=== PATIENT | male | born 1960 | race Caucasian/White ===

== ENCOUNTER 2025-04-19 10:36 | Observation (INO) ==
[2025-04-19] MEDS ORDERED: NS 1,000 ML IV 1,000 ML ONE (10:46)
[2025-04-19] MEDS: NS 1,000 ML IV 1,000 ML IV ONE (10:50)
--- NOTE | 2025-04-19 10:50 | DR.GENAD ---
HPI Time Seen Time Seen by Provider: 04/19/25 10:48 Complaint/Symptoms Chief Complaint Doctors Comments: This patient was found out in the ER by his relatives. He does have a history of alcoholism. They stated do not know when the last time he drank but he said he did not have anything to drink this morning. Has taken some medication for pain and depression prescribed by his primary care provider Dr. Ulrich. Patient was able to answer questions appropriately for his he knew we were [facility] what hospital he was he was. ROS Review of Systems Constitutional: Malaise, Weakness, Irritable and Other Eyes: No Symptoms Reported ENTM: No Symptoms Reported Respiratoy: No Symptoms Reported Cardiovascular: No Symptoms Reported Gastrointestinal/Abdominal: No Symptoms Reported Genitourinary: No Symptoms Reported Neurological: Anxiety and Weakness Musculoskeletal: Muscle Pain Integumentary: No Symptoms Reported Hematologic/Lymphatic: No Symptoms Reported Endocrine: No Symptoms Reported Psychiatric: Anxiety PE Vital Signs Vitals: Vital Signs Temperature 97.7 F Pulse Rate 81 Pulse Rate 78 Pulse Rate 85 Pulse Rate 84 Pulse Rate 83 Pulse Rate 86 Pulse Rate 87 Pulse Rate 86 Pulse Rate 93 Respiratory Rate 25 Respiratory Rate 25 Respiratory Rate 33 Respiratory Rate 29 Respiratory Rate 25 Respiratory Rate 26 Respiratory Rate 21 Blood Pressure 122/73 Blood Pressure 115/64 Blood Pressure 129/97 Blood Pressure 129/97 Blood Pressure 99/82 O2 Sat by Pulse Oximetry 96 O2 Sat by Pulse Oximetry 99 O2 Sat by Pulse Oximetry 98 O2 Sat by Pulse Oximetry 95 O2 Sat by Pulse Oximetry 97 O2 Sat by Pulse Oximetry 98 O2 Sat by Pulse Oximetry 100 General Limitations: Physical Limitation (due to weakness and muscle pain) Head Head Exam: Normal Inspection, Atraumatic and Normocephalic Eyes Eye exam: Normal Appearance ENT ENT Exam: Normal Exam External Ear Exam: Normal External Inspection TM/Canal Exam: Bilateral: Normal Nose Exam: Normal Nose Exam Mouth Exam: Normal Inspection Throat Exam: Normal Inspection Neck Neck Exam: Normal Inspection Chest Chest Inspection: Normal Inspection Respiratory Respiratory Exam: Other (rhonchi) Respiratory Exam: Bilateral: Rhonchi Abdominal Exam Abdominal Exam: Normal Inspection Extremities Extremities Exam: Normal Inspection Back Back Exam: Normal Inspection Neurologic Neurological Exam: Alert and Other (Agitated) Psychiatric Psychiatric Exam: Agitated Skin Skin Exam: Warm, Dry and Intact MDM Differential Diagnosis Differential Diagnosis: Rhabdomyolysis,Etoh abuse,acute renal failure COURSE Treatment Treatment: Patient may well stable during ER evaluation. We did do evaluation of this patient for rhabdo and he did have a CK of 6421. His BUN was 43 creatinine was 2.97 his GFR was 22 3 this patient did have alcohol level of less than 3 troponin was 19.7 EKG showed normal sinus rhythm chest x-ray was negative for infiltrate. We did do a CT scan of his brain that was negative for acute intracranial abnormality. The patient was started on half-normal saline bolus and with the amp of bicarb and there and the patient was also given Valium 5 mg IV. Spoke to Dr. Ulrich his primary care provider at 1215 he stated the changes to the IV fluids to lactated Ringer's to be ran at 200 cc an hour and continue with all the other medications I will let him prescribe what he wants to give the patient for his maybe impending withdrawal from alcohol use. Patient and patient family was told of the intent to admission and they were agreeable to the admission [facility]OR Labs Reviewed Laboratory Results Reviewed?: Yes 04/19/25 10:50 04/19/25 10:50 Laboratory: WBC 9.1 X10^3/uL (3.6-10.0) 04/19/25 10:50 RBC 3.65 X10^6/uL (4.7-6.0) L 04/19/25 10:50 Hgb 13.4 g/dL (13.5-18.0) L 04/19/25 10:50 Hct 38.8 % (42.0-54.0) L 04/19/25 10:50 MCV 106.4 fL (80.0-100.0) H 04/19/25 10:50 MCH 36.8 pg (27.0-34.0) H 04/19/25 10:50 MCHC 34.6 g/dL (33.0-35.0) 04/19/25 10:50 RDW 14.8 % (11.6-16.5) 04/19/25 10:50 Plt Count 100 X10^3/uL (150.0-450.0) L 04/19/25 10:50 Plt Count Comment Decreased (ADEQUATE) 04/19/25 10:50 MPV 9.5 fL (7.4-11.0) 04/19/25 10:50 Neut % (Auto) 83.9 % (42.0-75.0) H 04/19/25 10:50 Lymph % (Auto) 8.9 % (21.0-51.0) L 04/19/25 10:50 [place] % (Auto) 6.0 % (0.0-13.0) 04/19/25 10:50 Eos % (Auto) 0.4 % (0.9-2.9) L 04/19/25 10:50 Baso % (Auto) 0.8 % (0.2-1.0) 04/19/25 10:50 Neut # (Auto) 7.7 x10^3/uL (2.2-4.8) H 04/19/25 10:50 Lymph # (Auto) 0.8 X10^3/uL (1.3-2.9) L 04/19/25 10:50 [place] # (Auto) 0.6 x10^3/uL (0.3-0.8) 04/19/25 10:50 Eos # (Auto) 0.0 x10^3/uL (0.0-0.2) 04/19/25 10:50 Baso # (Auto) 0.1 X10^3/uL (0.0-0.1) 04/19/25 10:50 Absolute Nucleated RBC 0.3 /100WBC 04/19/25 10:50 Total Counted 100 04/19/25 10:50 Neutrophils % (Manual) 89 % (39-76) H 04/19/25 10:50 Lymphocytes % (Manual) 6 % (13-43) L 04/19/25 10:50 Monocytes % (Manual) 5 % (4-9) 04/19/25 10:50 Plt Morphology Comment Normal (NORMAL) 04/19/25 10:50 RBC Morphology Abnormal (NORMAL) 04/19/25 10:50 Macrocytosis 1+ A 04/19/25 10:50 Stomatocytes Present 04/19/25 10:50 Sample Site Left radial 04/19/25 12:25 ABG pH 7.400 (7.35-7.45) 04/19/25 12:25 ABG pCO2 38.0 mmHg (35.0-45.0) 04/19/25 12:25 ABG pO2 67.0 mmHg (80.0-100.0) L 04/19/25 12:25 ABG HCO3 23.5 mmol/L (22-26) 04/19/25 12:25 ABG O2 Saturation 93.0 % (90-100) 04/19/25 12:25 ABG Base Excess -1.1 mmol/L (-2.0-2.0) 04/19/25 12:25 Ross Test Positive 04/19/25 12:25 A-a Gradient 35.0 mmHg 04/19/25 12:25 FiO2 21.0 04/19/25 12:25 Blood Gas Comments Toll well au 04/19/25 12:25 Sodium 136 mmol/L (136-145) 04/19/25 10:50 Corrected Sodium TNP 04/19/25 10:50 Potassium 5.1 mmol/L (3.5-5.1) 04/19/25 10:50 Chloride 98 mmol/L (98-107) 04/19/25 10:50 Carbon Dioxide 24.6 mmol/L (21-32) 04/19/25 10:50 BUN 43 mg/dL (7-18) H 04/19/25 10:50 Creatinine 2.97 mg/dL (0.70-1.30) H 04/19/25 10:50 Est GFR (MDRD) Af Amer 28 (>60) L 04/19/25 10:50 Est GFR (MDRD) Non-Af 23 (>60) L 04/19/25 10:50 Glucose 93 mg/dL (65-99) 04/19/25 10:50 Calcium 9.9 mg/dL (8.5-10.1) 04/19/25 10:50 Corrected Calcium TNP 04/19/25 10:50 Total Bilirubin 0.70 mg/dL (0.2-1.0) 04/19/25 10:50 AST 160 Units/L (15-37) H 04/19/25 10:50 ALT 85 Units/L (12-78) H 04/19/25 10:50 Alkaline Phosphatase 73 Units/L (46-116) 04/19/25 10:50 Creatine Kinase 6421 Units/L (39-308) H 04/19/25 10:50 Troponin I High Sens 19.7 ng/L (4.0-60.0) 04/19/25 10:50 Total Protein 10.3 g/dL (6.4-8.2) H 04/19/25 10:50 Albumin 4.7 g/dL (3.4-5.0) 04/19/25 10:50 Globulin 5.6 g/dL (2.5-4.5) H 04/19/25 10:50 Albumin/Globulin Ratio 0.8 Ratio (1.1-2.1) L 04/19/25 10:50 Specimen Type Catherized urine 04/19/25 11:54 Urine Color Dark yellow (YELLOW) 04/19/25 11:54 Urine Appearance Clear (CLEAR) 04/19/25 11:54 Urine pH 5.0 (5.0 - 8.0) 04/19/25 11:54 Ur Specific [place] 1.020 (1.000-1.030) 04/19/25 11:54 Urine Protein 2+ (NEGATIVE) 04/19/25 11:54 Urine Glucose (UA) Negative (NEGATIVE) 04/19/25 11:54 Urine Ketones Negative (NEGATIVE) 04/19/25 11:54 Urine Blood 5+ (NEGATIVE) 04/19/25 11:54 Urine Nitrite Negative (NEGATIVE) 04/19/25 11:54 Urine Bilirubin Negative (NEGATIVE) 04/19/25 11:54 Urine Urobilinogen Normal (NORMAL) 04/19/25 11:54 Ur Leukocyte Esterase 1+ (NEGATIVE) 04/19/25 11:54 Urine RBC 5-10 /HPF (0-3) A 04/19/25 11:54 Urine WBC 0-2 /HPF (0-5) 04/19/25 11:54 Ur Squamous Epith Cells Rare /HPF (NEGATIVE) 04/19/25 11:54 Amorphous Sediment Trace /HPF (NEGATIVE) 04/19/25 11:54 Urine Bacteria Trace /HPF (NEGATIVE) 04/19/25 11:54 Ur Culture Indicated? No/not indicated 04/19/25 11:54 Ethyl Alcohol mg/dL < 3 mg/dL (0-19.9) 04/19/25 10:50 Opioid Opioid Risk Tool Total: 0 Total Score Risk Category: Low Risk Copyright: Brayan HENDRIX predicting aberrant behaviors Discharge Plan Diagnosis Discharge Problem: Rhabdomyolysis, Acute renal failure, Alcohol abuse Discharge Plan Patient Disposition: 09 ADMITTED INPATIENT Condition: Stable Prescriptions: No Action oxycodone-acetaminophen 10-325 mg tablet 1 tab PO TID PRN tamsulosin 0.4 mg capsule 0.4 mg PO DAILY lisinopril 10 mg tablet 10 mg PO QDAY escitalopram oxalate 20 mg tablet 20 mg PO QDAY bupropion HCl 150 mg tablet extended release 24 hr 150 mg PO QDAY pregabalin 150 mg capsule 150 mg PO DAILY Health Concerns: Post Hospitalization: new medications and changes needed to prevent readmission or further decline. Pt educated and given instructions on all concerns. Plan of Treatment: Continue with present treatment and follow up plan. Pt is to keep follow up appointment as instructed and take medications as ordered. Orders to Discharge Patient Discharge Orders: Transfer (Routine); Ordered 04/19/25 Ordered By: Ryan Bingham Follow ups/Referrals Follow ups/Referrals: KAREN ULRICH [Primary Care Provider, MEDICAL] - 3 days Instructions Stand Alone Forms: Find Help Web Site, Post Hospital Follow Up Care Print Language: SENEGALESE
--- NOTE | 2025-04-19 10:59 | EKG ---
Test Reason : Altered Mental Status Blood Pressure : */* mmHG Vent. Rate : 83 BPM Atrial Rate : 83 BPM P-R Int : 172 ms QRS Dur : 76 ms QT Int : 370 ms P-R-T Axes : -6 40 72 degrees QTc Int : 434 ms Normal sinus rhythm Normal ECG No previous ECGs available Confirmed by Timoteo Zarco MD ([id number]) on 04/19/2025 5:10:39 PM Referred By: Confirmed By: Timoteo Zarco MD
[2025-04-19 11:04] LABS: BASOPHILS # (AUTO) 0.1 X10^3/uL (0.0-0.1); BASOPHILS % (AUTO) 0.8 % (0.2-1.0); EOSINOPHILS % (AUTO) 0.4 % (0.9-2.9); HEMATOCRIT 38.8 % (42.0-54.0); HEMOGLOBIN 13.4 g/dL (13.5-18.0); LYMPHOCYTES # (AUTO) 0.8 X10^3/uL (1.3-2.9); LYMPHOCYTES % (AUTO) 8.9 % (21.0-51.0); MEAN CORPUSCULAR HEMOGLOBIN 36.8 pg (27.0-34.0); MEAN CORPUSCULAR HGB CONC 34.6 g/dL (33.0-35.0); MEAN CORPUSCULAR VOLUME 106.4 fL (80.0-100.0); MEAN PLATELET VOLUME 9.5 fL (7.4-11.0); MONOCYTES # (AUTO) 0.6 x10^3/uL (0.3-0.8); NEUTROPHILS # (AUTO) 7.7 x10^3/uL (2.2-4.8); NEUTROPHILS % (AUTO) 83.9 % (42.0-75.0); PLATELET COUNT 100 X10^3/uL (150.0-450.0); RED BLOOD COUNT 3.65 X10^6/uL (4.7-6.0); RED CELL DISTRIBUTION WIDTH 14.8 % (11.6-16.5); WHITE BLOOD COUNT 9.1 X10^3/uL (3.6-10.0)
[2025-04-19 11:20] LABS: ALANINE AMINOTRANSFERASE 85 Units/L (12-78); ALBUMIN 4.7 g/dL (3.4-5.0); ALKALINE PHOSPHATASE 73 Units/L (46-116); ASPARTATE AMINO TRANSFERASE 160 Units/L (15-37); BLOOD UREA NITROGEN 43 mg/dL (7-18); CALCIUM 9.9 mg/dL (8.5-10.1); CARBON DIOXIDE 24.6 mmol/L (21-32); CHLORIDE 98 mmol/L (98-107); CREATININE 2.97 mg/dL (0.70-1.30); GLUCOSE 93 mg/dL (65-99); POTASSIUM 5.1 mmol/L (3.5-5.1); SODIUM 136 mmol/L (136-145); TOTAL PROTEIN 10.3 g/dL (6.4-8.2); eGFR NON BLACK RACES 23 (>60)
[2025-04-19 11:21] LABS: BLOOD ALCOHOL < 3 mg/dL (0-19.9); CREATINE KINASE 6421 Units/L (39-308)
[2025-04-19 11:24] LABS: PLATELET MORPHOLOGY COMMENT NORMAL (NORMAL)
[2025-04-19 11:25] LABS: STOMATOCYTES PRESENT
--- NOTE | 2025-04-19 11:30 | CT ---
EXAM: BRAIN W/O CON HISTORY: [facility] called to home d/t patient laying in the yard "for hours". Pt is daily vodka drinker but pt denies he has drank anything this morning.; COMPARISON: No relevant prior studies were available for comparison at the time of interpretation.. TECHNIQUE: CT images were obtained. Multiplanar reconstructions were created on a separate workstation and used during interpretation. All CT scans at this facility is dose modulation, iterative reconstruction, and/or weight-based dosing as appropriate to reduce radiation to levels as low as reasonably achievable (ALARA). Postprocessing details, radiation dose, and contrast dose (if applicable) are recorded in the patient's medical record. FINDINGS: Head: Acute findings: There is no intracranial hemorrhage. No mass effect. No intra- axial or extra-axial fluid collection. There is no mass. No tentorial, uncal, or tonsillar herniation. Brain volume and white matter: There is diffuse cortical atrophy. There is hypoattenuation in the supratentorial white matter consistent with chronic microvascular ischemic disease. Ventricles: No hydrocephalus Midline structures: Pituitary gland and corpus callosum are normal. Posterior fossa and skull base: Cerebellum and posterior fossa are within normal limits. Basal cisterns are not effaced. Sinuses and mastoids: Right maxillary sinus is opacified Globes and Orbits: Globes are intact. Bony orbits are intact. Orbital contents are unremarkable. Skull and soft tissues: No depressed skull fracture. Calvarium appears intact. No scalp injury is identified. IMPRESSION: 1. No acute intracranial abnormality THIS IS AN ELECTRONICALLY VERIFIED FINAL REPORT 04/19/2025 11:27 AM - Electronically signed by Dann Ruffin MD
[2025-04-19] MEDS ORDERED: SODIUM BICARBONATE 8.4% INJ ADULT ONE (11:47)
[2025-04-19] MEDS ORDERED: NS 1/2 1,000 ML IV 1,000 ML IV ONE (11:47)
[2025-04-19] MEDS: SODIUM BICARBONATE 8.4% INJ ADULT 100 ML in NS 1/2 1,000 ML IV 1,000 ML IV ONE ×2 (11:59→12:09)
[2025-04-19] MEDS ORDERED: ATIVAN INJ 2 MG VIAL IVP ONE (12:04)
[2025-04-19] MEDS ORDERED: VALIUM INJ ONE (12:07)
[2025-04-19] MEDS: VALIUM INJ IM ONE (12:09)
[2025-04-19] MEDS: VALIUM INJ IVP ONE (12:09)
[2025-04-19 12:16] LABS: BILIRUBIN,URINE NEGATIVE (NEGATIVE); BLOOD/HEMOGLOBIN,URINE 5+ (NEGATIVE); GLUCOSE, URINE NEGATIVE (NEGATIVE); KETONES,URINE NEGATIVE (NEGATIVE); LEUKOCYTE ESTERASE ,URINE 1+ (NEGATIVE); NITRITES,URINE NEGATIVE (NEGATIVE); PROTEIN,URINE 2+ (NEGATIVE); UROBILINOGEN,URINE NORMAL (NORMAL)
[2025-04-19 12:28] LABS: ABG BASE EXCESS -1.1 mmol/L (-2.0-2.0); ABG HCO3 23.5 mmol/L (22-26)
[2025-04-19 12:29] LABS: ABG ALLEN TEST POSITIVE
[2025-04-19 12:31] LABS: APPEARANCE,URINE CLEAR (CLEAR); BACTERIA,URINE TRACE /HPF (NEGATIVE); COLOR,URINE DARK YELLOW (YELLOW); SQUAMOUS EPITHELIAL CELL,UR RARE /HPF (NEGATIVE)
[2025-04-19] MEDS ORDERED: VALIUM INJ IVP PRN (12:39)
[2025-04-19] MEDS: LR 1,000 ML IV 1,000 ML IV SCH (13:34)
[2025-04-19 13:50] VITALS: BMI 17.6
[2025-04-19 13:59] LABS: BLOOD UREA NITROGEN 42 mg/dL (7-18); CALCIUM 9.6 mg/dL (8.5-10.1); CHLORIDE 101 mmol/L (98-107); CREATININE 2.56 mg/dL (0.70-1.30); GLUCOSE 82 mg/dL (65-99); POTASSIUM 4.6 mmol/L (3.5-5.1); SODIUM 137 mmol/L (136-145); eGFR NON BLACK RACES 27 (>60)
[2025-04-19 14:17] LABS: CREATINE KINASE 7357 Units/L (39-308)
--- NOTE | 2025-04-19 16:35 | RAD ---
EXAM: CHEST, 1 VIEW HISTORY: EMS called to home d/t patient laying in the yard "for hours". Pt is daily vodka drinker but pt denies he has drank anything this morning.; COMPARISON: 02/20/2021 TECHNIQUE: AP portable FINDINGS: Unremarkable cardiac silhouette. No focal consolidation, pleural effusion, or pneumothorax. IMPRESSION: No acute cardiopulmonary findings. THIS IS AN ELECTRONICALLY VERIFIED FINAL REPORT 04/19/2025 4:32 PM - Electronically signed by Rajat Spears MD
[2025-04-19 22:56] LABS: CALCIUM 8.7 mg/dL (8.5-10.1); CARBON DIOXIDE 26.4 mmol/L (21-32); CREATININE 1.77 mg/dL (0.70-1.30); POTASSIUM 3.9 mmol/L (3.5-5.1)
[2025-04-20 06:13] LABS: BASOPHILS % (AUTO) 0.4 % (0.2-1.0); EOSINOPHILS # (AUTO) 0.1 x10^3/uL (0.0-0.2); EOSINOPHILS % (AUTO) 1.5 % (0.9-2.9); HEMATOCRIT 31.6 % (42.0-54.0); HEMOGLOBIN 10.8 g/dL (13.5-18.0); LYMPHOCYTES # (AUTO) 1.1 X10^3/uL (1.3-2.9); LYMPHOCYTES % (AUTO) 18.2 % (21.0-51.0); MEAN CORPUSCULAR HEMOGLOBIN 36.5 pg (27.0-34.0); MEAN CORPUSCULAR VOLUME 107.3 fL (80.0-100.0); MEAN PLATELET VOLUME 9.2 fL (7.4-11.0); MONOCYTES # (AUTO) 0.5 x10^3/uL (0.3-0.8); NEUTROPHILS # (AUTO) 4.4 x10^3/uL (2.2-4.8); NEUTROPHILS % (AUTO) 71.9 % (42.0-75.0); PLATELET COUNT 81 X10^3/uL (150.0-450.0); RED BLOOD COUNT 2.95 X10^6/uL (4.7-6.0); RED CELL DISTRIBUTION WIDTH 14.7 % (11.6-16.5); WHITE BLOOD COUNT 6.1 X10^3/uL (3.6-10.0)
[2025-04-20 06:34] LABS: ALANINE AMINOTRANSFERASE 55 Units/L (12-78); ALBUMIN 2.8 g/dL (3.4-5.0); ALKALINE PHOSPHATASE 54 Units/L (46-116); ASPARTATE AMINO TRANSFERASE 114 Units/L (15-37); BLOOD UREA NITROGEN 30 mg/dL (7-18); CALCIUM 8.8 mg/dL (8.5-10.1); CARBON DIOXIDE 27.5 mmol/L (21-32); CHLORIDE 106 mmol/L (98-107); COR CA(FOR HYPOALB) 9.8 mg/dL (8.5-10.1); COR NA(FOR HYPERGLY) 140 mmol/L (136-145); CREATININE 1.26 mg/dL (0.70-1.30); GLUCOSE 116 mg/dL (65-99); POTASSIUM 4.2 mmol/L (3.5-5.1); SODIUM 140 mmol/L (136-145); TOTAL PROTEIN 6.7 g/dL (6.4-8.2); eGFR NON BLACK RACES > 60 (>60)
[2025-04-20 06:51] LABS: PLATELET MORPHOLOGY COMMENT NORMAL (NORMAL)
[2025-04-20] MEDS ORDERED: MILK OF MAGNESIA PO PRN (07:31)
[2025-04-20] MEDS ORDERED: LIBRIUM PO PRN (07:31)
[2025-04-20] MEDS ORDERED: KAOPECTATE (NEW FORMULA) PO PRN (07:31)
[2025-04-20] MEDS ORDERED: MAALOX or MYLANTA PO PRN (07:31)
[2025-04-20] MEDS ORDERED: LEXAPRO ONE (08:04)
[2025-04-20 08:08] LABS: TSH (3RD GENERATION) 0.723 uIU/mL (0.358-3.74)
[2025-04-20] MEDS: FLOMAX PO SCH (08:35)
[2025-04-20] MEDS: ZESTRIL TAB 10 MG PO SCH (08:35)
[2025-04-20] MEDS: LEXAPRO PO SCH (08:36)
[2025-04-20] MEDS: THIAMINE HCL INJ IVP SCH (08:36)
[2025-04-20] MEDS: MAGNESIUM SULFATE 1 GRAM/100 mL PREMIX 1 G/100 ML BAG IV SCH (08:47)
[2025-04-20] MEDS: AMBIEN PO SCH (20:45)
[2025-04-21 05:24] VITALS: RESP 18; O2SAT 97
[2025-04-21 06:19] LABS: BASOPHILS % (AUTO) 0.3 % (0.2-1.0); EOSINOPHILS # (AUTO) 0.2 x10^3/uL (0.0-0.2); HEMATOCRIT 28.5 % (42.0-54.0); HEMOGLOBIN 9.7 g/dL (13.5-18.0); LYMPHOCYTES # (AUTO) 1.6 X10^3/uL (1.3-2.9); LYMPHOCYTES % (AUTO) 27.7 % (21.0-51.0); MEAN CORPUSCULAR HEMOGLOBIN 36.7 pg (27.0-34.0); MEAN CORPUSCULAR HGB CONC 34.2 g/dL (33.0-35.0); MEAN CORPUSCULAR VOLUME 107.1 fL (80.0-100.0); MEAN PLATELET VOLUME 9.3 fL (7.4-11.0); MONOCYTES # (AUTO) 0.6 x10^3/uL (0.3-0.8); MONOCYTES % (AUTO) 10.3 % (0.0-13.0); NEUTROPHILS # (AUTO) 3.4 x10^3/uL (2.2-4.8); NEUTROPHILS % (AUTO) 58.7 % (42.0-75.0); PLATELET COUNT 86 X10^3/uL (150.0-450.0); RED BLOOD COUNT 2.66 X10^6/uL (4.7-6.0); RED CELL DISTRIBUTION WIDTH 14.6 % (11.6-16.5); WHITE BLOOD COUNT 5.7 X10^3/uL (3.6-10.0)
[2025-04-21 06:21] LABS: ALANINE AMINOTRANSFERASE 46 Units/L (12-78); ALBUMIN 2.5 g/dL (3.4-5.0); ALKALINE PHOSPHATASE 46 Units/L (46-116); ASPARTATE AMINO TRANSFERASE 75 Units/L (15-37); BLOOD UREA NITROGEN 16 mg/dL (7-18); CALCIUM 8.4 mg/dL (8.5-10.1); CARBON DIOXIDE 26.9 mmol/L (21-32); CHLORIDE 105 mmol/L (98-107); COR CA(FOR HYPOALB) 9.6 mg/dL (8.5-10.1); CREATININE 1.03 mg/dL (0.70-1.30); GLUCOSE 91 mg/dL (65-99); POTASSIUM 4.1 mmol/L (3.5-5.1); SODIUM 139 mmol/L (136-145); TOTAL PROTEIN 6.1 g/dL (6.4-8.2); eGFR NON BLACK RACES > 60 (>60)
[2025-04-21 06:24] LABS: CREATINE KINASE 1117 Units/L (39-308)
[2025-04-21 06:59] LABS: PLATELET MORPHOLOGY COMMENT NORMAL (NORMAL)
[2025-04-21 07:00] LABS: MICROCYTOSIS 1+
[2025-04-21] MEDS ORDERED: LEXAPRO ONE (07:26)
[2025-04-21 08:53] VITALS: BP 117/66; PULSE 76; TEMP 98.5
== END 2025-04-21 11:52 | disposition home or self-care (01) ==
LOC: SUPCPDRO → ER 10:36 → INTOOBSV 12:33 → MED/SURG 12:33
PROVIDERS: ADMIT Obstetrics & Gynecology Obstetrics; ATTEND Obstetrics & Gynecology Obstetrics